=== PATIENT | male | born 1955 | race Hispanic/Latino ===

== ENCOUNTER → 2017-09-25 | Outpatient (CLI) | payer BC ==
--- NOTE | 2017-09-25 12:12 | Diagnostic Imaging Report ---
PROCEDURE: Frontal and lateral views of the chest. COMPARISON: None. INDICATIONS: CHRONIC COUGH FINDINGS: Lines/tubes: None. Lungs: The lungs are well inflated and clear. There is no evidence of pneumonia or pulmonary edema. Pleura: There is no pleural effusion or pneumothorax. Heart and mediastinum: The heart and the mediastinum are normal. Bones: No acute bony abnormality. Degenerative changes of the thoracic spine. IMPRESSION: No acute radiographic abnormality. Dictated by: Hardeep Woodall M.D. on 09/25/2017 at 12:14 Electronically approved by: Hardeep Woodall M.D. on 09/25/2017 at 12:14
== END ==
LOC: RAD 10:49
PROVIDERS: ATTEND Family Medicine
DX: R05 Cough (principal)
CPT/HCPCS: 71046

== ENCOUNTER → 2018-02-08 | Outpatient (CLI) | payer BC ==
--- NOTE | 2018-02-08 11:01 | Diagnostic Imaging Report ---
PROCEDURE:X-RAY RIGHT FOOT, COMPLETE COMPARISON:None. INDICATIONS:RIGHT FOOT AND HEEL PAIN FINDINGS: No acute, displaced fracture or dislocation. Appropriate alignment between the medial cuneiform and second metatarsal base in keeping with an intact Lisfranc ligament. Joint spaces are well-maintained. Soft tissues are unremarkable. CONCLUSION: No acute osseous abnormalities. Dictated by: Nicanor Jonas M.D. on 02/08/2018 at 11:09 Electronically approved by: Nicanor Jonas M.D. on 02/08/2018 at 11:09
--- NOTE | 2018-02-08 11:02 | Diagnostic Imaging Report ---
PROCEDURE:X-RAY RIGHT HEEL COMPARISON:None. INDICATIONS:RIGHT FOOT AND HEEL PAIN FINDINGS: No acute displaced fracture or dislocation. Subtalar joint appears intact. Soft tissues are unremarkable. CONCLUSION: no acute osseous abnormality. Dictated by: Nicanor Jonas M.D. on 02/08/2018 at 11:10 Electronically approved by: Nicanor Jonas M.D. on 02/08/2018 at 11:10
== END ==
LOC: RAD 10:14
PROVIDERS: ATTEND Family Medicine
DX: M79.671 Pain in right foot (principal); M89.8X7 Other specified disorders of bone, ankle and foot

== ENCOUNTER → 2018-06-09 | Outpatient (CLI) | payer BC | LOC: RAD 08:55 | PROVIDERS: ATTEND Family Medicine | DX: M79.662 Pain in left lower leg (principal); M79.661 Pain in right lower leg | CPT/HCPCS: 93970 ==

== ENCOUNTER → 2018-08-03 | Outpatient (CLI) | payer BC ==
--- NOTE | 2018-08-03 11:00 | Diagnostic Imaging Report ---
EXAMINATION: PA and lateral views of the chest. COMPARISON: None CLINICAL HISTORY: Chronic cough DISCUSSION: Lines/tubes: None. Lungs: The lungs are well inflated and clear. There is no evidence of pneumonia or pulmonary edema. Pleura: There is no pleural effusion or pneumothorax. Heart and mediastinum: The cardiomediastinal silhouette is normal. Bones and soft tissues: No acute bony abnormalities. Degenerative changes in the thoracic spine IMPRESSION: No acute cardiopulmonary abnormalities. Signed by: Dr. Nicanor Jonas M.D. on 08/03/2018 10:56 AM
== END ==
LOC: RAD 10:18
PROVIDERS: ATTEND Family Medicine
DX: R05 Cough (principal)
CPT/HCPCS: 71046

== ENCOUNTER → 2020-09-21 | Outpatient (CLI) | payer OTHER | LOC: RAD 08:36 | PROVIDERS: ATTEND Family Medicine | DX: M54.2 Cervicalgia (principal) | CPT/HCPCS: 72050 ==